=== PATIENT | male | born 1985 | race Caucasian/White ===

== ENCOUNTER 2017-03-29 11:43 | Inpatient (IN) | payer BC, OTHER ==
[~2017-03-29] VITALS: Ht 205.7 cm; Wt 108.9 kg
[2017-03-31] MEDS ORDERED: ONDANSETRON 4 MG/2 ML VIAL IM PRN (01:30)
[2017-03-31] MEDS ORDERED: MAGNESIUM HYDROXIDE 30 ML LIQUID UDC PO PRN (01:30)
[2017-03-31] MEDS ORDERED: IBUPROFEN 400 MG TABLET PO PRN (01:30)
[2017-03-31] MEDS ORDERED: HYDROXYZINE PAMOATE 25 MG CAPSULE PO PRN (01:30)
[2017-03-31] MEDS ORDERED: BUPRENORPHINE HCL 2 MG TAB.SUBL SL PRN ×2 (01:30→13:45)
[2017-03-31] MEDS ORDERED: LOPERAMIDE HCL 2 MG CAPSULE PO PRN ×2 (01:30)
[2017-03-31] MEDS ORDERED: ACETAMINOPHEN 325 MG TABLET PO PRN (01:30)
[2017-03-31] MEDS ORDERED: MIRALAX 17 GM POWD.PACK PO PRN (01:30)
[2017-03-31 01:43] LABS: *AMPHETAMINE, URINE NEGATIVE (NEGATIVE); *BARBITURATE, URINE NEGATIVE (NEGATIVE); *CANNABINOID, URINE NEGATIVE (NEGATIVE); *COCCAINE, URINE POSITIVE (NEGATIVE); *OPIATE, URINE POSITIVE (NEGATIVE); *PHENCYCLIDINE SCREEN,URINE NEGATIVE (NEGATIVE)
[2017-03-31] MEDS ORDERED: ATEN25TA PO (01:45)
[2017-03-31] MEDS ORDERED: LOSA25TA13 PO (01:45)
--- NOTE | 2017-03-31 01:45 | NUR ---
PRE ADMISSION Pt. is 31 year old male, alert and oriented x3, appears intoxicated. Patient reports he is here to detox off of opiates and cocaine. Reports allergies to Codeine. Upon assessment BP=99/67, HR=82, Temp=98.1, SpO2=96% , RR=16, breathing is unlabored and even, strong ETOH smell from his mouth, [id number], Height=69. Patient was educated regarding unit policies with good verbal understanding. Pt. will be admitted to the [facility].
[2017-03-31 01:49] LABS: BILIRUBIN,TOTAL 0.3 mg/dL (0.2-1.0); CREATININE 0.8 mg/dL (0.6-1.3); POTASSIUM 3.5 mmol/L (3.5-5.1); TOTAL PROTEIN, SERUM 7.7 g/dL (6.4-8.2)
[2017-03-31 01:52] LABS: BASOPHILS # (AUTO) 0.1 K/uL (0.0-8.0); BASOPHILS % (AUTO) 0.7 % (0.0-2.0); EOSINOPHILS # (AUTO) 0.4 K/uL (0.0-0.7); EOSINOPHILS % (AUTO) 4.1 % (0.0-7.0); HEMATOCRIT 43.6 % (40-50); HEMOGLOBIN 14.8 G/DL (14.0-18.0); LYMPHOCYTES # (AUTO) 2.7 K/UL (0.8-4.8); LYMPHOCYTES % (AUTO) 27.4 % (20.5-51.5); MEAN CORPUSCULAR HEMOGLOBIN 30.5 UUG (27.0-31.0); MEAN CORPUSCULAR HGB CONC 34 g/dL (32.0-37.0); MEAN CORPUSCULAR VOLUME 89.5 FL (82.0-92.0); MONOCYTES # (AUTO) 0.6 K/UL (0.1-1.30); MONOCYTES % (AUTO) 6.4 % (0.0-11.0); NEUTROPHILS # (AUTO) 5.9 K/UL (1.8-8.9); NEUTROPHILS % (AUTO) 61.4 % (38.5-71.5); PLATELET COUNT (AUTO) 182 K/UL (150-450); RED BLOOD CELL COUNT(AUTO) 4.87 MIL/UL (4.7-6.1); WHITE BLOOD COUNT (AUTO) 9.7 K/UL (4.0-11.2)
[2017-03-31 01:59] LABS: THYROID STIMULATING HORMONE 1.017 mIU/mL (0.358-3.740)
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
[2017-03-31 04:00] VITALS: BP 109/67
--- NOTE | 2017-03-31 06:36 | NUR ---
END OF SHIFT NOTE Pt. is 31 years old male admitted to [facility] for medically supervised withdrawal from opiates, cocaine. Pt. was able to provide urine for drug screen positive for benzo, cocaine, opiates. Alcohol level in the blood is elevated. Pt. was oriented to the unit and her room. Pt. denies history of seizures, he is on regular diet, allergic to Codeine, is full code. Pt remains compliant with the treatment plan. No PRNs were given during my shift. V/S remain WNL. RR=16, even and unlabored, lungs clear upon auscultation, abdomen soft and non- distended. Pt denies nausea, vomiting and diarrhea. LAST COWS=5 at 0400 , [id number] ml, voided x1 , slept 2 hours. Safety measures in place : bed on lowest position with side rails x2 up for safety, call light within reach. Will continue to monitor closely and offer help.
--- NOTE | 2017-03-31 07:00 | NUR ---
Start of Shift Endorsement received from nightshift nurse. Pt is a 31 y/o male admitted for opiate dependence. Pt reports hx of a frequent use of a alcohol as well as occasional use of benzos he received from his mother. Pt has been placed under observation under the care of Dr. Mesa. Pt's symptoms will be managed with PRN medications at this time. Pt did not receive any PRN medications. PT appears to be sleeping at this time. Responsive to touch, breathing even and unlabored. PT reported sleeping only 2 hours during the night. Pt is moderately withdrawing AEB COWS 5. VS WNL. Full Code. PT is alert and oriented x4. Pt is in STABLE condition at this time. Remains compliant with medication and diet regimen. All needs have been met, All safety measures in place per hospital policy. Bed in lowest position, side rails up x2, call-light within reach. Will continue to monitor
[2017-03-31 08:00] VITALS: BP 100/56
[2017-03-31] MEDS: MULTIVITAMINS,THERAPEUTIC TABLET PO SCH (09:00)
[2017-03-31 12:00] VITALS: BP 118/72
[2017-03-31] MEDS ORDERED: LORAZEPAM 1 MG TABLET PO PRN (13:45)
[2017-03-31] MEDS ORDERED: ATENOLOL 25 MG PO ONE (13:45)
[2017-03-31] MEDS ORDERED: LORAZEPAM 2 MG/1 ML VIAL IM PRN (13:45)
[2017-03-31 16:00] VITALS: BP 122/78
[2017-03-31] MEDS: CLONIDINE HCL 0.1 MG TABLET PO PRN ×2 (17:00→21:26)
[2017-03-31] MEDS: LORAZEPAM 1 MG TABLET PO PRN (17:00)
--- NOTE | 2017-03-31 17:00 | NUR ---
PRN Medications Administered PRN Ativan 1mg for CIWA 5 and Clonidine for reported Anxiety of 9/10. Will re-assess
--- NOTE | 2017-03-31 17:35 | NUR ---
PRN Re-assessment Pt reports relieve from anxiety, rates anxiety at 4/10 at this time. CIWA down to 2 from 5. Medications were effective.
--- NOTE | 2017-03-31 19:04 | NUR ---
End of Shift Endorsement given to nightshift nurse. Pt is a 31 y/o male admitted for opiate dependence. Pt reports hx of a frequent use of a alcohol as well as occasional use of benzos he received from his mother. Pt has been placed under observation under the care of Dr. Mesa. Pt's symptoms will be managed with PRN medications at this time. Pt received PRN Ativan and clonidine for anxiety and withdrawal symptoms. PT has remained in his room all day. Educated pt on S/E of withdrawals and encouraged him to report any new symptoms he experiences. Intake: 1630ml, Void x2, BM x1. . Pt is moderately withdrawing AEB COWS 5, CIWA 5. VS WNL. Full Code. PT is alert and oriented x4. Pt is in STABLE condition at this time. Remains compliant with medication and diet regimen. All needs have been met, All safety measures in place per hospital policy. Bed in lowest position, side rails up x2, call-light within reach. Will continue to monitor
--- NOTE | 2017-03-31 19:15 | NUR ---
START OF SHIFT NOTE : Pt is a 31 y/o male admitted for opiate dependence. Pt reports hx of a frequent use of a alcohol as well as occasional use of benzos he received from his mother. Pt has been placed under observation, under the care of Dr. Mesa. Pt's symptoms will be managed with PRN medications at this time. PT appears to be sleeping at this time. Responsive to touch, breathing even and unlabored. LAST COWS=5. VS WNL. No Codeine allergy per , Reg.diet. Full Code. Pt. is in STABLE condition at this time. Remains compliant with medication and diet regimen. All needs have been met, All safety measures in place per hospital policy. Bed in lowest position, side rails up x2, call-light within reach. Will continue to monitor closely.
[2017-03-31 20:00] VITALS: BP 113/67
--- NOTE | 2017-03-31 21:00 | NUR ---
PRN BENADRYL, CATAPRES Pt. complains of sleeplessness, inceased level of anxiety. PRN BENADRYL, CATAPRES given as ordered. Safety measures in place : bed on lowest position with side rails x2 up for safety, call light within reach. Will continue to monitor closely and offer help.
[2017-03-31] MEDS: ATENOLOL 25 MG PO SCH (21:26)
[2017-03-31] MEDS: diphenhydrAMINE 50 MG CAPSULE PO PRN (21:26)
--- NOTE | 2017-03-31 22:00 | NUR ---
RE-ASSESSMENT MODESTA DYER Pt. is sleeping, RR=16, unlabored and even. Safety measures in place : bed on lowest position with side rails x2 up for safety, call light within reach. Will continue to monitor closely and offer help.
--- NOTE | 2017-04-01 06:52 | NUR ---
END OF SHIFT NOTE : Pt is a 31 y/o male admitted for opiate dependence. Pt reports hx of a frequent use of a alcohol as well as occasional use of benzos he received from his mother. Pt has been placed under observation, under the care of Dr. Mesa. Pt's symptoms will be managed with PRN medications at this time. PT appears to be sleeping at this time. Responsive to touch, breathing even and unlabored. VS WNL. No Codeine allergy per , Reg.diet. Full Code. Pt. is in STABLE condition at this time. Remains compliant with medication and diet regimen. All needs have been met . Pt remains compliant with the treatment plan. PRN BENADRYL, CATAPRES were given during my shift. V/S remain WNL. RR=16, even and unlabored, lungs clear upon auscultation, abdomen soft and non- distended. Pt denies nausea, vomiting and diarrhea. LAST CIWA=5 ,COWS=3 at 0400 , [id number]=[id number] ml, voided x3 , slept 5 hours. All safety measures in place per hospital policy. Bed in lowest position, side rails up x2, call-light within reach. Will continue to monitor closely.
--- NOTE | 2017-04-01 07:04 | NUR ---
Start of Shift Endorsement received from nightshift nurse. Pt is a 31 y/o male admitted for opiate dependence. Pt reports hx of a frequent use of a alcohol as well as occasional use of benzos he received from his mother. Pt has been placed under observation under the care of Dr. Mesa. Pt's symptoms will be managed with PRN medications at this time. Pt received PRN Benadryl and Clonidine. Pt reports sleeping 5 hours, reports feeling tired due to being woken up for the VS. Pt is moderately withdrawing AEB COWS 3, CIWA 5. VS WNL. Full Code. PT is alert and oriented x4. Pt is in STABLE condition at this time. Remains compliant with medication and diet regimen. All needs have been met, All safety measures in place per hospital policy. Bed in lowest position, side rails up x2, call-light within reach. Will continue to monitor
[2017-04-01 08:00] VITALS: BP 124/74
[2017-04-01] MEDS ORDERED: TUBERCULIN,PURIF.PROT.DERIV. 5 TU/0.1 ML TEST ID ONE (09:00)
[2017-04-01] MEDS ORDERED: ATENOLOL 25MG TABLET PO SCH (09:00)
[2017-04-01] MEDS: MULTIVITAMINS,THERAPEUTIC TABLET PO SCH (09:00)
[2017-04-01] MEDS: ATENOLOL 25 MG PO SCH ×2 (09:53→21:35)
[2017-04-01] MEDS: LOSARTAN 25MG PO SCH (09:53)
[2017-04-01] MEDS: CLONIDINE HCL 0.1 MG TABLET PO PRN (11:50)
[2017-04-01] MEDS: METHOCARBAMOL 750 MG TABLET PO PRN ×2 (11:50→21:34)
[2017-04-01 12:00] VITALS: BP 129/88
[2017-04-01 12:09] LABS: HEPATITIS B SURFACE AG Negative (Negative)
--- NOTE | 2017-04-01 15:25 | NUR ---
PRN Medications Administered PRN Ativan 1mg for CIWA 8 and Zofran 4mg for nausea. Will re-assess
[2017-04-01] MEDS: ONDANSETRON ODT 4 MG TAB.RAPDIS SL PRN (15:26)
[2017-04-01] MEDS: LORAZEPAM 1 MG TABLET PO PRN (15:27)
[2017-04-01 16:00] VITALS: BP 102/56
--- NOTE | 2017-04-01 16:00 | NUR ---
Medication Re-assessment Pt reports nausea has improved and CIWA has gone from 8 to 3. Medications were effective.
--- NOTE | 2017-04-01 18:45 | NUR ---
End of Shift Endorsement given to nightshift nurse. Pt is a 31 y/o male admitted for opiate dependence. Pt reports hx of a frequent use of a alcohol as well as occasional use of benzos he received from his mother. Pt has been placed under observation under the care of Dr. Mesa. Pt's symptoms will be managed with PRN medications at this time. Pt received PRN Ativan and Zofran for anxiety and nausea. Pt also received Clonidine and Robaxin per Dr. Mesa. Pt is expected to start his Subutex taper on 04/02/17. PT has not participated in groups or activities. Encouraged pt to drink more fluids to prevent dehydration due to excessive sweating caused by withdrawals. Reinforced education on S/E of withdrawals and encouraged him to report any new symptoms he experiences. Intake: 1500ml, Void x3, BM x1. . Pt is moderately withdrawing AEB COWS 8, CIWA 8. VS WNL. Full Code. PT is alert and oriented x4. Pt is in STABLE condition at this time. Remains compliant with medication and diet regimen. All needs have been met, All safety measures in place per hospital policy. Bed in lowest position, side rails up x2, call-light within reach. Will continue to monitor
--- NOTE | 2017-04-01 19:15 | NUR ---
START OF SHIFT NOTE : Pt is a 31 y/o male admitted for opiate dependence. Pt reports hx of a frequent use of a alcohol as well as occasional use of benzos he received from his mother. Pt has been placed under observation, under the care of Dr. Mesa. Pt's symptoms will be managed with PRN medications at this time. PT appears to be sleeping at this time. Responsive to touch, breathing even and unlabored. VS WNL. No Codeine allergy per , Reg.diet. Full Code. Pt. is in STABLE condition at this time. Remains compliant with medication and diet regimen. Pt. will be started on Subutex taper on 04/02/2017. All needs have been met, Pt remains compliant with the treatment plan. V/S remain WNL. RR=16, even and unlabored, lungs clear upon auscultation, abdomen soft and non- distended. Pt denies nausea, vomiting and diarrhea. Safety measures in place : bed on lowest position with side rails x2 up for safety, call light within reach. Will continue to monitor closely and offer help.
[2017-04-01 20:00] VITALS: BP 100/68
[2017-04-01] MEDS ORDERED: LORAZEPAM 1 MG TABLET PO ONE (21:00)
--- NOTE | 2017-04-01 21:00 | NUR ---
PRN BENADRYL, ROBAXIN Pt. complains of sleeplessness, muscle spasm. PRN BENADRYL, ROBAXIN given as ordered. Safety measures in place : bed on lowest position with side rails x2 up for safety, call light within reach. Will continue to monitor closely and offer help.
[2017-04-01] MEDS: diphenhydrAMINE 50 MG CAPSULE PO PRN (21:34)
--- NOTE | 2017-04-01 22:00 | NUR ---
REASSESSMENT MILAGRO DYER Pt. is sleeping, RR=16, unlabored and even. Safety measures in place : bed on lowest position with side rails x2 up for safety, call light within reach. Will continue to monitor closely and offer help.
--- NOTE | 2017-04-02 06:37 | NUR ---
END OF SHIFT NOTE : Pt is a 31 y/o male admitted for opiate dependence. Pt reports hx of a frequent use of a alcohol as well as occasional use of benzos he received from his mother. Pt has been placed under observation, under the care of Dr. Mesa. Pt's symptoms will be managed with PRN medications at this time. PT appears to be sleeping at this time. Responsive to touch, breathing even and unlabored. VS WNL. No Codeine allergy per , Reg.diet. Full Code. Pt. is in STABLE condition at this time. Remains compliant with medication and diet regimen. Pt. will be started on Subutex taper on 04/02/2017. All needs have been met, Pt remains compliant with the treatment plan. PRN BENADRYL, ROBAXIN were given during my shift. V/S remain WNL. RR=16, even and unlabored, lungs clear upon auscultation, abdomen soft and non- distended. Pt denies nausea, vomiting and diarrhea. LAST CIWA= 4 ,COWS= 4 at 0400 , [id number] ml, voided x 3, slept 6 hours. Safety measures in place : bed on lowest position with side rails x2 up for safety, call light within reach. Will continue to monitor closely and offer help.
--- NOTE | 2017-04-02 07:09 | NUR ---
tart of Shift Endorsement received from nightshift nurse. Pt is a 31 y/o male admitted for opiate dependence. Pt reports hx of a frequent use of a alcohol as well as occasional use of benzos he received from his mother. Pt continues to remain under observation and withdrawal symptoms being treated by PRN medications. Pt received PRN Benadryl and Robaxin. Pt reports sleeping 6 hours. Pt is moderately withdrawing AEB COWS 4, CIWA 4. VS WNL. Full Code. PT is alert and oriented x4. Pt is in STABLE condition at this time. Remains compliant with medication and diet regimen. All needs have been met, All safety measures in place per hospital policy. Bed in lowest position, side rails up x2, call-light within reach. Will continue to monitor Addendum: 04/02/17 at 1416 by JENNIFER OBRIEN RN *Start of Shift
[2017-04-02 08:00] VITALS: BP 128/74
[2017-04-02] MEDS: LOSARTAN 25MG PO SCH (08:16)
[2017-04-02] MEDS: MULTIVITAMINS,THERAPEUTIC TABLET PO SCH (08:16)
[2017-04-02] MEDS: ATENOLOL 25 MG PO SCH ×2 (08:17→21:00)
[2017-04-02] MEDS: LORAZEPAM 1 MG TABLET PO PRN ×2 (08:22→15:38)
[2017-04-02] MEDS: METHOCARBAMOL 750 MG TABLET PO PRN ×2 (08:23→15:38)
[2017-04-02] MEDS: CLONIDINE HCL 0.1 MG TABLET PO PRN (08:23)
[2017-04-02] MEDS: ONDANSETRON ODT 4 MG TAB.RAPDIS SL PRN (08:23)
--- NOTE | 2017-04-02 08:23 | NUR ---
PRN Medications Pt has received PRN Clonidine, Zofran, Ativan and Zofran for CIWA 8 and severe nausea.
--- NOTE | 2017-04-02 08:50 | NUR ---
Medication Re-assessment Zofran was ineffective, Pt reports an episode of emesis. Administered one time Zofran IM per Dr. Mesa. The other medications were also ineffective possibly due to the pt vomiting them out.
[2017-04-02] MEDS ORDERED: ONDANSETRON 4 MG/2 ML VIAL IM ONE (09:15)
--- NOTE | 2017-04-02 09:30 | NUR ---
PRN Subutex Administered PRN Subutex for COWS 13 per protocol
--- NOTE | 2017-04-02 10:00 | NUR ---
Medication re-assessment Medication was effective, COWS score is 7 upon re-assessment.
[2017-04-02] MEDS: GABAPENTIN 300 MG CAPSULE PO SCH ×3 (10:33→16:50)
[2017-04-02] MEDS ORDERED: METHOCARBAMOL 500 MG TABLET PO ONE (11:45)
[2017-04-02] MEDS ORDERED: LORAZEPAM 1 MG TABLET PO ONE ×2 (11:45→21:00)
[2017-04-02 12:00] VITALS: BP 120/81
[2017-04-02] MEDS ORDERED: PROMETHAZINE HCL 25 MG/1 ML VIAL IM ONE (13:00)
[2017-04-02] MEDS ORDERED: PANTOPRAZOLE SODIUM 40 MG VIAL IV SCH (13:00)
[2017-04-02] MEDS ORDERED: DICYCLOMINE HCL 20 MG/2 ML AMPUL IM ONE (13:00)
[2017-04-02] MEDS ORDERED: ONDANSETRON 4 MG/2 ML VIAL IV PRN (13:00)
[2017-04-02] MEDS: BUPRENORPHINE HCL 2 MG TAB.SUBL SL SCH ×4 (13:11→22:10)
--- NOTE | 2017-04-02 13:50 | NUR ---
IV INSERTION Pt had a peripheral IV 20G inserted on his left hand. Insertion successful after second attempt, pt tolerated well. IV flushes easily with no complaints of discomfort from pt. positive blood return noted, Tegaderm applied D5 1/2 NS at 125ml/hr. Pt educated on s/s of infiltration and instructed to contact the nurse in case of any pain, redness, swelling or discomfort, pt verbalized understanding.
[2017-04-02] MEDS: IV D5 1/2 NS 1000 ML 1,000 ML IV PRN (13:56)
--- NOTE | 2017-04-02 14:30 | NUR ---
IV Removed IV has been removed due to being infiltrated. PT refuses to allow reinsertion at this time.
--- NOTE | 2017-04-02 15:38 | NUR ---
PRN Medications Administered PRN Ativan 2mg and Robaxin for CIWA 14. Will re-assess.
[2017-04-02 16:00] VITALS: BP 102/75
--- NOTE | 2017-04-02 16:10 | NUR ---
Medication Re-assessment Pt presents with CIWA of 7 from 14. Medication was effective.
--- NOTE | 2017-04-02 18:49 | NUR ---
End of Shift Endorsement given to nightshift nurse. Pt is a 31 y/o male admitted for opiate dependence. Pt reports hx of a frequent use of a alcohol as well as occasional use of benzos he received from his mother. Pt has begun a 5 day Subutex taper today at 1300 for COWS score of 12. Pt received PRN Ativan x2 and Zofran x2 for anxiety and nausea. Pt also received Clonidine and Robaxin x3 and Subutex 4mg per Dr. Mesa. Pt initially agreed to allow IV access but later refused it. Pt reported 2 episodes of emesis. PT is tolerating fluids and dry foods. Educated and encourage pt to only eat dry food and in small amount to prevent future episodes of emesis. PT has not participated in activities, pt did participate in one group. Reinforced education on S/E of withdrawals and encouraged him to report any new symptoms he experiences. Intake: 1400ml, Void x2, BM x2. . Pt is moderately withdrawing AEB COWS 7, CIWA 10. VS WNL. Full Code. PT is alert and oriented x4. Pt is in STABLE condition at this time. Remains compliant with medication and diet regimen. All needs have been met, All safety measures in place per hospital policy. Bed in lowest position, side rails up x2, call-light within reach. Will continue to monitor
--- NOTE | 2017-04-02 19:15 | NUR ---
START OF SHIFT Received 31 year old male patient admitted on 03/30/17 for Opiate dependency. Pt is full code with NKA. He reports a PMHx of MARFAN syndrome, HTN, 2 open heart surgeries (2005, 2012), x1 abd surgery (2005), and eye surgery in 1996. Pt reports using Oxycodone 30-50 mg daily since 2015. Last dose was 03/30/17. Oxycontin 5-10 pills daily since 2015. Last dose was 03/29/17. Cocaine 1 gram daily since 03/2017. Last dose was 03/30/17. ETOH (beer) 4 cans three times per week. Last dose was February 2016. Pt with PRN Ativan available and was started on a 5 day Subutex taper today 04/02/17. Pt is alert and oriented x4, breathing is even and unlabored. Safety measures in place. Will continue to monitor.
[2017-04-02 20:00] VITALS: BP 99/61
[2017-04-02] MEDS: diphenhydrAMINE 50 MG CAPSULE PO PRN (22:00)
--- NOTE | 2017-04-02 22:00 | NUR ---
PRN BENADRYL Pt complains of inability to sleep. PRN Benadryl administered as ordered. Breathing is even and unlabored. Respirations 16. Safety measures in place. Will monitor effectiveness.
--- NOTE | 2017-04-02 22:00 | NUR ---
NON ADMINISTERED MEDICATION 2100 dose at Atenolol held d/t decreased HR of 65. Breathing is even and unlabored,safety measures in place. Will continue to monitor.
--- NOTE | 2017-04-02 23:00 | NUR ---
PRN BENADRYL REASSESSMENT PRN Benadryl ineffective. Pt still awake and unable to sleep. Respirations 16, breathing is even and unlabored. Safety measures in place. Will monitor.
[2017-04-03] VITALS: BP 142/91
--- NOTE | 2017-04-03 00:12 | NUR ---
IV Insertion Inserted IV on the right hand #22, patent and intact, saline flush done, no resistance noted. Secured IV site.
--- NOTE | 2017-04-03 00:13 | NUR ---
PRN ZOFRAN IV Pt complains of nausea with no episode of vomiting. PRN Zofran IV administered as ordered. Pt tolerated well. Will continue to monitor.
[2017-04-03] MEDS: CLONIDINE HCL 0.1 MG TABLET PO PRN (00:16)
--- NOTE | 2017-04-03 00:16 | NUR ---
PRN CLONIDINE/ROBAXIN Pt complains of anxiety and body aches 5/10. PRN Clonidine and Robaxin administered as ordered. Breathing even and unlabored. Safety measures in place. Will continue to monitor effectiveness.
[2017-04-03] MEDS: METHOCARBAMOL 750 MG TABLET PO PRN ×3 (00:17→18:34)
[2017-04-03] MEDS: IV D5 1/2 NS 1000 ML 1,000 ML IV PRN (01:11)
--- NOTE | 2017-04-03 01:13 | NUR ---
PRN ZOFRAN IV REASSESSMENT PRN medication somewhat effective. Pt still reports feeling nauseous. Encouraged pt to eat bland foods such as crackers, adn encouraged small sips of fluids. Pt verbalized understanding. Breathing even and unlabored. Safety measures in place. Will monitor.
--- NOTE | 2017-04-03 01:16 | NUR ---
PRN CLONIDINE/ROBAXIN REASSESSMENT PRN Clonidine ineffective. Pt still complains of anxiety/agitation. PRN Robaxin effective. Pt reports decrease in body aches 11/10. Safety measures in place. Will monitor.
[2017-04-03] MEDS: LORAZEPAM 1 MG TABLET PO PRN ×2 (01:22→08:48)
--- NOTE | 2017-04-03 01:22 | NUR ---
PRN ATIVAN Pt noted to be anxious and agitated. He is restless and unable to sit still. CIWA: 10. PRN Ativan administered as ordered. Safety measures in place. Will monitor effectiveness.
--- NOTE | 2017-04-03 02:22 | NUR ---
PRN ATIVAN REASSESSMENT PRN Ativan effective. Pt noted with decreased agitation/anxiety and restlessness. CIWA:6. Safety measures in place. Will monitor.
--- NOTE | 2017-04-03 04:00 | NUR ---
VITALS REFUSED/COWS, CIWA DEFERRED 0400 vitals were refused by pt. Risks/benefits explained x3, pt still refused. COWS/CIWA deferred d/t pt lying in bed with eyes closed noted to be asleep. Respirations 16, breathing even and unlabored. Safety measures in place. Will monitor.
--- NOTE | 2017-04-03 06:59 | NUR ---
END OF SHIFT Pt is a 31 year old male patient admitted on 03/30/17 for Opiate dependency. Pt is full code with NKA. He reports a PMHx of MARFAN syndrome, HTN, 2 open heart surgeries (2005, 2012), x1 abd surgery (2005), and eye surgery in 1996. At 2200 pt received PRN Benadryl, At 0016, pt received PRN Robaxin and Clonidine, At 0122 pt received PRN Ativan. He has a 22 gauge IV on right hand with D5 1/2 NS running at 125mL/hr. Pt is tolerating well. He slept a total of 6hrs, Intake: 1776mL, Void: x3, BM:0, COWS:9, CIWA:10. Pt remains alert and oriented x4, breathing is even and unlabored. Safety measures in place. Will endorse to oncoming shift.
--- NOTE | 2017-04-03 07:10 | NUR ---
Start of shift note Pt was admitted for opiate and etoh dependence. Pt has a PMHx of marfan syndrome, HTN, and has had multiple surgeries. Pt denies any allergies. Pt is on a 5 day subutex taper and PRN ativan. Pt is currently ambulating around the unit. Pt has no complaints at this time. Will continue to monitor pt. All needs addressed at this time.
[2017-04-03 08:00] VITALS: BP 117/71
[2017-04-03] MEDS: GABAPENTIN 300 MG CAPSULE PO SCH ×2 (08:48→12:54)
[2017-04-03] MEDS: LOSARTAN 25MG PO SCH (08:48)
[2017-04-03] MEDS: ATENOLOL 25 MG PO SCH (08:48)
--- NOTE | 2017-04-03 08:48 | NUR ---
PRN administration Pt c/o muscle aches, dyspepsia, and withdrawal s/s and anxiety. Administered PRN ativan, robaxin and maalox. Will continue to monitor pt.
[2017-04-03] MEDS: MULTIVITAMINS,THERAPEUTIC TABLET PO SCH (08:49)
[2017-04-03] MEDS: MAG HYDROX/AL HYDROX/SIMETH 30 ML LIQUID UDC PO PRN ×2 (08:49→18:34)
[2017-04-03] MEDS ORDERED: BUPRENORPHINE HCL 2 MG TAB.SUBL SL SCH (09:00)
--- NOTE | 2017-04-03 09:48 | NUR ---
Reassessment Pt states that the maalox was effective and that he was able to eat cereal for breakfast. Pt states that he feels less anxious and that his body aches have improved.
--- NOTE | 2017-04-03 11:00 | NUR ---
IV d/c Pt requested to have IV d/c'd, Dr Meas notified, gave ok to d/c IV and IV fluids. Pt tolerated well.
[2017-04-03 12:00] VITALS: BP 101/68
--- NOTE | 2017-04-03 12:29 | NUR ---
MD communication Pt states that he has severe anxiety, and feels like he is "crawling out of my skin". Notified Dr Mesa, ordered ativan 2mg PO x1 now. Orders entered, MD unable to enter orders.
[2017-04-03] MEDS ORDERED: LORAZEPAM 1 MG TABLET PO ONE (12:30)
[2017-04-03] MEDS ORDERED: IBUPROFEN 600 MG TABLET PO PRN (13:15)
[2017-04-03] MEDS ORDERED: CLONIDINE HCL 0.1 MG TABLET PO ONE (13:15)
[2017-04-03] MEDS ORDERED: KETOROLAC TROMETHAMINE 30 MG INJ IM PRN (13:15)
[2017-04-03] MEDS ORDERED: LORAZEPAM 1 MG TABLET PO PRN (13:15)
[2017-04-03] MEDS ORDERED: ONDANSETRON 4 MG/2 ML VIAL IM PRN (13:15)
[2017-04-03] MEDS: BACLOFEN 20 MG TABLET PO SCH ×2 (14:13→20:10)
[2017-04-03] MEDS: DICYCLOMINE HCL 20 MG TABLET PO SCH ×2 (14:13→20:10)
[2017-04-03] MEDS ORDERED: LORAZEPAM 1 MG TABLET PO SCH (15:00)
[2017-04-03] MEDS: CLONIDINE HCL 0.1 MG TABLET PO SCH ×2 (15:33→20:13)
[2017-04-03 16:00] VITALS: BP 105/77
--- NOTE | 2017-04-03 16:15 | NUR ---
Therapist prompted client to attend group sessions daily, and was reminded that group times are daily at 11am and 3:30pm. Client stated that he would attend the next group.
--- NOTE | 2017-04-03 16:59 | NUR ---
PRN administration Pt c/o diarrhea and withdrawal s/s. Pt has a CIWA of 10 and states he's had 4 bouts of diarrhea. Administered PRN ativan and Imodium per MD order.
[2017-04-03] MEDS ORDERED: TRAZODONE 50 MG TABLET PO PRN (17:45)
--- NOTE | 2017-04-03 17:59 | NUR ---
Reassessment Pt states that he has dyspepsia, and that he would like more medications, however when offered further medications pt refused stating "I just want valium". Pt educated that he has a valium scheduled tonight at 2100 and that he just had another dose of PRN ativan at 1700. Offered pt maalox, zofran and imodium. Pt refused all at this time stating "I'll just tough it out". Will continue to monitor pt and administer medications per MD order. Dr Mesa aware.
[2017-04-03] MEDS ORDERED: DIAZEPAM 10 MG TABLET PO ONE ×2 (18:15→21:00)
[2017-04-03] MEDS: ONDANSETRON ODT 4 MG TAB.RAPDIS SL PRN (18:34)
--- NOTE | 2017-04-03 18:34 | NUR ---
PRN administration Dr Mesa ordered a 1x valium. Pt has a COWS of 17, CIWA of 16. Pt c/o diarrhea, nausea, dyspepsia, muscle aches and pains. Administered PRN zofran, imodium, maalox, robaxin, motrin with the 1x valium. Will continue to monitor pt. All other needs addressed at this time.
--- NOTE | 2017-04-03 19:07 | NUR ---
End of shift note Pt was admitted for opiate and ETOH dependence. Pt has a PMHx of marfan syndrome with multiple surgeries. Pt is full code, on a regular diet and denies any allergies. Pt subutex taper was d/c'd during the shift d/t pt refusing to take subutex, pt states that he has an adverse reaction to the subutex. Pt IVFs were d/c'd, IV removed. Pt has started a custom ativan and valium taper to manage his s/s of withdrawal. Pt had multiple PRN's during the shift to manage his s/s of withdrawal. Pt's symptoms worsened over the course of the shift, at 0800 pt had a COWS of 6 and a CIWA of 5, at 1834 pt had a COWS of 17 and CIWA of 16. Pt recently had a PRN dose of: imodium, robaxin, motrin, zofran, maalox and a onetime valium. Will endorse SBAR to oncoming shift. Pt drank 2065ml of fluids, had 2 voids and multiple episodes of diarrhea.
[2017-04-03 20:00] VITALS: BP 107/78
--- NOTE | 2017-04-03 20:00 | NUR ---
Start of shift: Pt was admitted for opiate and ETOH dependence. Pt has a PMHx of marfan syndrome with multiple surgeries. Pt is full code, on a regular diet and denies any allergies. Pt subutex taper was d/c'd during am shift, pt states that he has an adverse reaction to the subutex. Pt has started a custom ativan and valium taper to manage his s/s of withdrawal. Pt is very anxious and irritable, pt has a COWS of 13 and a CIWA of 18. Will continue to monitor patient.
[2017-04-03 20:13] VITALS: BP 107/78
--- NOTE | 2017-04-03 20:30 | NUR ---
AMA Note: Pt expressed wanting to leave AMA. Attempted to redirect but pt insisted on leaving. Pt educated about the risks of leaving AMA. MD made aware. Administration made aware. Pt given a list of community resources. Pt signed AMA paperwork. Pt left the unit at 2030.
[2017-04-04] MEDS ORDERED: LORAZEPAM 1 MG TABLET PO SCH (09:00)
[2017-04-04] MEDS ORDERED: BUPRENORPHINE HCL 2 MG TAB.SUBL SL SCH ×2 (09:00→15:00)
[2017-04-05] MEDS ORDERED: BUPRENORPHINE HCL 2 MG TAB.SUBL SL SCH (09:00)
[2017-04-05] MEDS ORDERED: LORAZEPAM 1 MG TABLET PO SCH (09:00)
[2017-04-06] MEDS ORDERED: BUPRENORPHINE HCL 2 MG TAB.SUBL SL SCH (09:00)
== END 2017-04-03 20:30 | disposition left against medical advice (07) | DRG 894 ==
LOC: SRC 03-30 23:59
PROVIDERS: ADMIT Internal Medicine; ATTEND Internal Medicine
PROC: HZ2ZZZZ Detoxification Services for Substance Abuse Treatment (ICD-10-PCS; principal; 2017-03-30)
PROC: HZ41ZZZ Group Counseling for Substance Abuse Treatment, Behavioral (ICD-10-PCS; 2017-04-02)
PROC: HZ31ZZZ Individual Counseling for Substance Abuse Treatment, Behavioral (ICD-10-PCS; 2017-04-03)
DX: F11.23 Opioid dependence with withdrawal (principal); Q87.40 Marfan syndrome, unspecified; F10.10 Alcohol abuse, uncomplicated; Y90.9 Presence of alcohol in blood, level not specified; F14.10 Cocaine abuse, uncomplicated; F13.10 Sedative, hypnotic or anxiolytic abuse, uncomplicated; F17.210 Nicotine dependence, cigarettes, uncomplicated; I10 Essential (primary) hypertension; Z87.828 Personal history of other (healed) physical injury and trauma; F41.9 Anxiety disorder, unspecified; Z82.5 Family history of asthma and other chronic lower respiratory diseases; Z82.61 Family history of arthritis; Z81.3 Family history of other psychoactive substance abuse and dependence
CPT/HCPCS: 36415; 70030-TC; 80307; 80346; 80353; 80361; 83690; 83735; 84443; 85025; 86580; 86592; 86705; 86803; 87340; 87806; G0480; J0500; J2405; J2550; J3490; Q0162; Q0163